=== PATIENT | male | born 1995 | race Caucasian/White ===

== ENCOUNTER 2018-03-18 13:35 | Emergency (ER) | payer OTHER ==
[2018-03-18] MEDS: IBUPROFEN 800 MG TABLET. PO (15:07)
[2018-03-18] MEDS: HYDROcodone/APAP 5/325MG 1 TAB TABLET PO (15:07)
== END 2018-03-18 15:46 | disposition home or self-care (01) ==
LOC: ER 15:46
DX: S16.1XXA Strain of muscle, fascia and tendon at neck level, initial encounter (principal); S39.012A Strain of muscle, fascia and tendon of lower back, initial encounter; S63.501A Unspecified sprain of right wrist, initial encounter; V53.6XXA Passenger in pick-up truck or van injured in collision with car, pick-up truck or van in traffic accident, initial encounter; Y93.89 Activity, other specified; Y99.8 Other external cause status; Y92.410 Unspecified street and highway as the place of occurrence of the external cause
CPT/HCPCS: 70450; 72100; 72125; 73110; 99284